=== PATIENT | female | born 1995 | race Hispanic/Latino ===

== ENCOUNTER 2017-10-11 14:16 | Emergency (ER) | payer SELFPAY ==
[2017-10-11] MEDS ORDERED: TETANUS & DIPHTHERIA TOX,ADULT 0.5 ML VIAL ONE (15:15)
[2017-10-11] MEDS ORDERED: MAGNESIUM SULFATE 1 gm IVPB 1 GM/100 ML BAG IV ONE (15:54)
[2017-10-11] MEDS ORDERED: IBUPROFEN 400 MG TAB ONE (16:22)
--- NOTE | 2017-10-11 17:14 | ER ---
Nurse's Notes [facility] Name: Larisa Monreal Age: 21 yrs Sex: Female : 1995 Arrival Date: 10/11/2017 Time: 14:20 Bed 10 Private MD: None, None Diagnosis: Toxic effect of contact with stingray, accidental (unintentional) Presentation: 10/11 14:46 Presenting complaint: Patient states: "[place] felt a aa5 sting and now my left foot is hurting now". Transition of care: patient was not received from another setting of care. Onset of symptoms was October 11, 2017. Risk Assessment: Do you want to hurt yourself or someone else? Patient reports no desire to harm self or others. Initial Sepsis Screen: Does the patient meet any 2 criteria? No. Patient's initial sepsis screen is negative. Does the patient have a suspected source of infection? No. Patient's initial sepsis screen is negative. Care prior to arrival: None. 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 - Social history:: Smoking status: Patient/guardian denies using tobacco. - Ebola Screening: : No symptoms or risks identified at this time. Screenin:35 Abuse screen: Denies threats or abuse. Denies injuries from another. Nutritional aj1 screening: No deficits noted. Tuberculosis screening: No symptoms or risk factors identified. 17:27 Fall Risk None identified. aj1 Assessment: 15:35 General: Appears in no apparent distress. uncomfortable, Behavior is calm, cooperative, aj1 appropriate for age. Pain: Complains of pain in left foot Pain does not radiate. Pain currently is 5 out of 10 on a pain scale. Neuro: Level of Consciousness is awake, alert, obeys commands, Oriented to person, place, time, situation. Cardiovascular: Patient's skin is warm and dry. Respiratory: Airway is patent Respiratory effort is even, unlabored, Respiratory pattern is regular, symmetrical. GI: No signs and/or symptoms were reported involving the gastrointestinal system. : No signs and/or symptoms were reported regarding the genitourinary system. EENT: No signs and/or symptoms were reported regarding the EENT system. Derm: Skin is pink, warm \\T\\ dry. Musculoskeletal: Circulation, motion, and sensation intact. Injury Description: Puncture sustained to heel of left foot. 16:39 Reassessment: Patient appears in no apparent distress at this time. No changes from aj1 previously documented assessment. Patient and/or family updated on plan of care and expected duration. Pain level reassessed. Patient is alert, oriented x 3, equal unlabored respirations, skin warm/dry/pink. Vital Signs: 14:48 BP 114 / 85; Pulse 90; Resp 18 S; Temp 98.0(TE); Pulse Ox 99% on R/A; Weight 99.79 kg aa5 (R); Height 5 ft. 5 in. (165.10 cm) (R); Pain 10/10; 17:26 Pulse 66; Resp 18; Pulse Ox 98% on R/A; aj1 14:48 Body Mass Index 36.61 (99.79 kg, 165.10 cm) aa5 ED Course: 14:20 Patient arrived in ED. mr 14:21 None, None is Private Physician. mr 14:45 Josue Raymond MD is Attending Physician. ps1 14:47 Triage completed. aa5 14:47 Arm band placed on. aa5 15:11 Cindy Smart, RN is Primary Nurse. aj1 15:35 Patient has correct armband on for positive identification. Bed in low position. Call aj1 light in reach. Side rails up X 1. 15:35 No provider procedures requiring assistance completed. aj1 17:26 Wound care: heel wrapped with moist warm channing wrap, per verbal orders by Dr. Raymond. aj1 Patient tolerated well. 17:27 Patient did not have IV access during this emergency room visit. aj1 Administered Medications: 16:01 Drug: Tetanus-Diphtheria Toxoid Adult 0.5 ml {[employer]: [facility]. Exp: aj1 12/10/2019. Lot #: [id number]. } Route: IM; Site: right deltoid; 17:28 Follow up: Response: No adverse reaction aj1 16:40 Drug: Motrin 800 mg Route: PO; aj1 17:28 Follow up: Response: No adverse reaction aj1 Outcome: 17:14 Discharge ordered by . ps1 17:28 Discharged to home ambulatory. aj1 17:28 Condition: good 17:28 Discharge instructions given to patient, Instructed on discharge instructions, follow up and referral plans. medication usage, Demonstrated understanding of instructions, follow-up care, medications, Prescriptions given X 2. 17:29 Patient left the ED. aj1 Signatures: Cindy Smart RN RN aj1 Tonya Cisse mr Madie Crouch RN RN aa5 Josue Raymond MD MD ps1 Corrections: (The following items were deleted from the chart) 14:59 14:56 Madie Crouch, VISH is Primary Nurse. aa5 aa5
--- NOTE | 2017-10-11 17:15 | EDPHYS ---
Physician Documentation [facility] Name: Larisa Monreal Age: 21 yrs Sex: Female : 1995 Arrival Date: 10/11/2017 Time: 14:20 Bed 10 Private MD: None, None ED Physician Josue Raymond HPI: 10/11 14:59 This 21 yrs old Female presents to ER via Ambulatory with complaints of Foot ps1 Injury. 14:59 The patient presents with walking in the ocean and got stung by something. She has pain ps1 and a puncture wound in the left heel. Pain rated as moderate to severe. Worse with movement. Tetanus UTD. Unknown as to what she was injured by, possible stingray. No clare. . The complaints affect the left foot. 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 - Social history:: Smoking status: Patient/guardian denies using tobacco. - Ebola Screening: : No symptoms or risks identified at this time. ROS: 14:59 Constitutional: Negative for fever, chills, and weight loss, Eyes: Negative for injury, ps1 pain, redness, and discharge, ENT: Negative for injury, pain, and discharge, Cardiovascular: Negative for chest pain, palpitations, and edema, Respiratory: Negative for shortness of breath, cough, wheezing, and pleuritic chest pain, Abdomen/GI: Negative for abdominal pain, nausea, vomiting, diarrhea, and constipation, Skin: Negative for injury, rash, and discoloration, Neuro: Negative for headache, weakness, numbness, tingling, and seizure. 14:59 MS/extremity: Positive for puncture, of the left foot. Exam: 15:03 Constitutional: This is a well developed, well nourished patient who is awake, alert, ps1 and in no acute distress. Head/Face: Normocephalic, atraumatic. Eyes: Pupils equal round and reactive to light, extra-ocular motions intact. Lids and lashes normal. Conjunctiva and sclera are non-icteric and not injected. Chest/axilla: Normal chest wall appearance and motion. Nontender with no deformity. No lesions are appreciated. Cardiovascular: Regular rate and rhythm. No gallops, murmurs, or rubs. Normal PMI, no JVD. No pulse deficits. Respiratory: Lungs have equal breath sounds bilaterally, clear to auscultation and percussion. No rales, rhonchi or wheezes noted. No increased work of breathing, no retractions or nasal flaring. Abdomen/GI: Soft, non-tender, with normal bowel sounds. No distension or tympany. No guarding or rebound. No evidence of tenderness throughout. 15:03 Skin: puncture wound to left heel no obvious FB.. Vital Signs: 14:48 BP 114 / 85; Pulse 90; Resp 18 S; Temp 98.0(TE); Pulse Ox 99% on R/A; Weight 99.79 kg aa5 (R); Height 5 ft. 5 in. (165.10 cm) (R); Pain 10/10; 17:26 Pulse 66; Resp 18; Pulse Ox 98% on R/A; aj1 14:48 Body Mass Index 36.61 (99.79 kg, 165.10 cm) aa5 MDM: 15:04 Data reviewed: vital signs, nurses notes. ED course: Pt foot being soaked in hot water ps1 for suspected sting ray. Will update tetanus. . 15:06 Patient medically screened. ps1 Administered Medications: 16:01 Drug: Tetanus-Diphtheria Toxoid Adult 0.5 ml {[employer]: [employer]. Exp: aj1 12/10/2019. Lot #: [id number]. } Route: IM; Site: right deltoid; 17:28 Follow up: Response: No adverse reaction aj1 16:40 Drug: Motrin 800 mg Route: PO; aj1 17:28 Follow up: Response: No adverse reaction aj1 Disposition: 10/11/17 17:14 Discharged to Home. Impression: Toxic effect of contact with stingray, accidental (unintentional). - Condition is Stable. - Discharge Instructions: Marine Life Injury. - Prescriptions for Anaprox DS 550 mg Oral Tablet - take 1 tablet by ORAL route every 12 hours As needed; 20 tablet. Doxycycline Hyclate 100 mg Oral Tablet - take 1 tablet by ORAL route once daily; 10 tablet. - Medication Reconciliation Form, Thank You Letter, Antibiotic Education, Prescription Opioid Use form. - Follow up: Private Physician; When: As needed; Reason: Recheck today's complaints, Continuance of care, Re-evaluation by your physician. Follow up: Emergency Department; When: As needed; Reason: Trouble breathing, Worsening of condition. - Problem is new. - Symptoms have improved. Signatures: Cindy Smart RN RN aj1 Madie Crouch RN RN aa5 Josue Raymond MD MD ps1 Corrections: (The following items were deleted from the chart) 17:29 17:14 10/11/2017 17:14 Discharged to Home. Impression: Toxic effect of contact with aj1 stingray, accidental (unintentional). Condition is Stable. Forms are Medication Reconciliation Form, Thank You Letter, Antibiotic Education, Prescription Opioid Use. Follow up: Private Physician; When: As needed; Reason: Recheck today's complaints, Continuance of care, Re-evaluation by your physician. Follow up: Emergency Department; When: As needed; Reason: Trouble breathing, Worsening of condition. Problem is new. Symptoms have improved. ps1
== END 2017-10-11 17:29 | disposition home or self-care (01) ==
LOC: ER 14:16
DX: T63.511A Toxic effect of contact with stingray, accidental (unintentional), initial encounter (principal); Y92.832 Beach as the place of occurrence of the external cause; Z23 Encounter for immunization
CPT/HCPCS: 90714; 99283; J3475